=== PATIENT | male | born 1955 | race Caucasian/White ===

== ENCOUNTER 2017-07-21 15:30 | Observation (INO) ==
--- NOTE | 2017-07-21 15:57 | Emergency Department Note ---
Disposition Clinical Impression: Atrial fibrillation with RVR, History of coronary artery disease, History of COPD, History of diabetes mellitus, History of NE (myocardial infarction), Cardiac defibrillator in situ, Pacemaker, History of CHF (congestive heart failure), Dyspnea on exertion, Obesity, History of hyperlipidemia, History of hypertension, Abnormal EKG Disposition: Admitted As Inpatient Referrals: Santana Casas MD [Primary Care Provider] - Forms: ED Satisfaction Letter General Adult HPI - General Chief complaint: ED Chest Pain Stated complaint: A-fib RVR Time Seen by Provider: 07/21/17 15:42 Source: patient Limitations: no limitations - History of Present Illness HPI Narrative: 61-year-old male reports emergency department complaining of dyspnea on exertion , he states he took his breathing medications and then his heart started racing. He has had difficulty since last evening. The patient was at the outpatient facility getting his defibrillator checked, they noticed he had a high heart rate, so he came to the ED. There is no history of chest pain, coughing up blood, or abdominal pain. No vomiting or diarrhea. No history of acute back pain syncope coughing up blood leg swelling or pain or any trouble walking talking hearing seeing or speaking. No unilateral arm or leg weakness or numbness no facial drooping or slurred speech reported. There is no history of bleeding. The patient takes antiplatelet agents but is not known to be anticoagulated otherwise. He is diabetic. The patient describes COPD without oxygen requirement. He states he was prescribed breathing medication help him when he gets short of breath on exertion. There is no history of fall or injury. The patient has been symptomatic since yesterday. He states he has had cardiac stents in the past. Pain Scale: 0 - Related Data Home Medications Medication Instructions Recorded Confirmed Albuterol Sulfate [Proair Hfa] 1 puff IH Q4H PRN 05/13/16 09/06/16 Aspirin [Lo-Dose Aspirin EC] 81 mg PO DAILY 05/13/16 09/06/16 Atorvastatin [Lipitor] 40 mg PO HS 05/13/16 09/06/16 Budesonide/Formoterol 160/4.5 1 puff IH BIDR 05/13/16 09/06/16 [Symbicort 160/4.5] Furosemide [Lasix] 20 mg PO DAILY 05/13/16 09/06/16 Glimepiride [Amaryl] 2 mg PO DAILY 05/13/16 09/06/16 Hydralazine HCl 25 mg PO TID 05/13/16 09/06/16 Lisinopril [Zestril] 20 mg PO DAILY 05/13/16 09/06/16 Metoprolol XL (24 HR) Succ [Toprol 50 mg PO DAILY 05/13/16 09/06/16 Xl] Nitroglycerin [Nitrostat] 0.4 mg SL DAILY PRN 05/13/16 09/06/16 OxyCODONE/APAP 5/325 [Percocet 1 each PO Q6HR PRN 05/13/16 09/06/16 5/325 MG] Potassium Chloride [K-Tab ER] 10 meq PO TID 05/13/16 09/06/16 Sertraline [Zoloft] 200 mg PO DAILY 05/13/16 09/06/16 Allergies Allergy/AdvReac Type Severity Reaction Status Date / Time amiodarone AdvReac Difficulty Verified 10/03/15 09:41 Breathing tamsulosin [From Flomax] AdvReac Difficulty Verified 05/13/16 11:55 Breathing All systems ED: reviewed and negative except as stated. Past Medical History - Past Medical History Medical history: Reports: asthma, atrial fibrillation, CHF, COPD, coronary artery disease, diabetes, glaucoma, hyperlipidemia, hypertension, myocardial infarction, other Surgical history: Reports: angioplasty/stent, pacemaker/AICD, other Psychiatric history: Reports: depression - Social History Smoking Status: Never smoker Alcohol use: Reports: none Drug use: Reports: none Physical Exam - General Limitations: no limitations General appearance: alert, in no apparent distress - Head Head exam: atraumatic, normocephalic, normal inspection - Eye Eye exam: Present: normal appearance, PERRL, EOMI - ENT ENT exam: normal exam, normal oropharynx, mucous membranes moist - Neck Neck exam: Present: normal inspection, full ROM, trachea midline - Chest Chest inspection: Present: symmetric chest wall rise. Absent: tenderness - Respiratory Respiratory exam: Present: normal lung sounds bilaterally. Absent: respiratory distress, wheezes, accessory muscle use, prolonged expiratory phase - Cardiovascular Cardiovascular exam: Present: tachycardia, irregular rhythm - Abdominal Exam Abdominal exam: Present: soft, Non-Tender, normal bowel sounds. Absent: tenderness, distention, guarding, rebound, rigidity, pulsatile mass - Extremities Exam Extremities exam: Present: normal inspection, full ROM. Absent: tenderness, normal capillary refill, pedal edema, joint swelling, calf tenderness - Expanded Lower Extremity Exam Lower leg exam: Absent: Homans' sign Neurovascular/Tendon exam: Present: normal capillary refill. Absent: motor deficit, sensory deficit, tendon deficit, extremity cold to touch, pallor - Back Exam Back exam: Present: normal inspection, full ROM. Absent: tenderness, CVA tenderness (R), CVA tenderness (L), vertebral tenderness - Neurological Exam Neurological exam: Present: alert, oriented X3, CN II-XII intact. Absent: motor sensory deficit - Psychiatric Psychiatric exam: Present: normal affect, normal mood - Skin Skin exam: Present: warm, dry, intact, normal color. Absent: rash, cyanosis, diaphoresis, erythema, pallor, mottled Course Vital Signs Temperature 98.1 F 07/21/17 15:35 Pulse Rate 170 07/21/17 15:35 Respiratory Rate 16 07/21/17 15:35 Blood Pressure 119/86 07/21/17 15:35 O2 Sat by Pulse Oximetry 95 07/21/17 15:35 Temperature 98.1 F 07/21/17 15:35 Pulse Rate 77 07/21/17 16:46 Respiratory Rate 16 07/21/17 16:46 Blood Pressure 112/94 07/21/17 16:46 O2 Sat by Pulse Oximetry 97 07/21/17 16:46 Oxygen Delivery Oxygen Delivery Nasal Cannula Medical Decision Making - [facility] Narrative Medical decision making narrative: The patient appears to be stable, he was given insulin and aspirin the ED. The patient did not complain of chest pain. He has marked vascular risk factors, the patient's heart rate was reportedly in the 170s, and EKG demonstrated A. fib RVR with a heart rate of 144, he seemed to spontaneously convert into a sinus-type rhythm with pacemaker active. The patient has several PVCs but no evidence of acute ST elevations, inferior lead changes are noted which are consistent with previous. The patient had a recent stress test which also demonstrate what appear to be a fixed inferior defect. The previous stress test , current EKG, and previous EKG are consistent. The patient is not describing chest pain. The patient's glucose is notably elevated at 444. Based on the patient's age, history of CAD, CHF, COPD, uncontrolled diabetes, hyperlipidemia , hypertension, acute tachycardia, A. fib RVR, pacemaker in situ, I thought it would be best to observe the patient the hospital. I discussed the case with the hospitalist on-call who has accepted the patient to their care. The patient is agreeable to stay. His feels the patient's his stay as well. He reports he had had episodes where his defibrillator went off up to 59 times in 2 hours but has not had a the defibrillator event today. The hospitalist asked me to consult cardiology prior to admitting. I spoke with Dr. Velázquez who will act as storage management consultant. The patient is currently resting comfortably, chest pain-free. - Lab Data Lab results reviewed: Yes I reviewed the patient's lab results. Result diagrams: 07/21/17 16:02 07/21/17 16:02 Lab Results 07/21/17 07/21/17 07/21/17 Range/Units 16:02 16:02 16:02 WBC 9.2 (4.3-11.1) K/mcL RBC 5.21 (4.19-5.50) M/mcL Hgb 16.0 (12.9-16.9) g/dL Hct 46.9 (37.5-50.1) % MCV 90.0 (83.0-100.0) fL MCH 30.7 (28.0-33.3) pg MCHC 34.1 (31.6-35.5) g/dL RDW 13.0 (11.5-14.5) % Plt Count 189 (140-400) K/mcL MPV 10.2 (9.4-12.4) fL Immature Gran % 0.7 (0-4) % Seg Neutrophils % 80.1 % Lymphocytes % 10.6 % Monocytes % 7.8 % Eosinophils % 0.5 % Basophils % 0.3 % Neutrophils # 7.4 (1.6-8.9) K/mcL Lymphocytes # 1.0 (0.6-4.6) K/mcL Monocytes # 0.7 (0.0-1.3) K/mcL Eosinophils # 0.1 (0.0-0.6) K/mcL Basophils # 0.0 (0.0-0.2) K/mcL PT 11.0 (9.4-12.1) Seconds INR 1.0 APTT 25.0 L (26.0-36.0) Seconds Sodium (136-145) mEq/L Potassium (3.5-4.5) mEq/L Chloride (98-109) mEq/L Carbon Dioxide (19-29) mEq/L BUN (8-26) mg/dL Creatinine (0.72-1.25) mg/dL Est GFR ( Amer) (> 60) Est GFR (Non-Af Amer) (> 60) BUN/Creatinine Ratio (6-26) Glucose (70-99) mg/dL Calculated Osmolality (280-300) Calcium (8.6-10.8) mg/dL Total Bilirubin 0.7 (0.2-1.2) mg/dL Direct Bilirubin 0.3 (0.0-0.5) mg/dL Indirect Bilirubin 0.4 (0.0-1.2) mg/dL AST 22 (5-34) Units/L ALT 36 (0-55) Units/L Alkaline Phosphatase 63 (38-126) Units/L Troponin I (0-0.03) ng/mL B-Natriuretic Peptide (0-100) pg/mL Serum Total Protein 7.5 (6.0-8.3) g/dL Albumin 3.8 (3.5-5.0) g/dL Globulin 3.7 H (2.4-3.5) g/dL Albumin/Globulin Ratio 1.0 L (1.1-2.2) Lipase 29 (8-78) Units/L 07/21/17 07/21/17 07/21/17 Range/Units 16:02 16:02 16:06 WBC (4.3-11.1) K/mcL RBC (4.19-5.50) M/mcL Hgb (12.9-16.9) g/dL Hct (37.5-50.1) % MCV (83.0-100.0) fL MCH (28.0-33.3) pg MCHC (31.6-35.5) g/dL RDW (11.5-14.5) % Plt Count (140-400) K/mcL MPV (9.4-12.4) fL Immature Gran % (0-4) % Seg Neutrophils % % Lymphocytes % % Monocytes % % Eosinophils % % Basophils % % Neutrophils # (1.6-8.9) K/mcL Lymphocytes # (0.6-4.6) K/mcL Monocytes # (0.0-1.3) K/mcL Eosinophils # (0.0-0.6) K/mcL Basophils # (0.0-0.2) K/mcL PT (9.4-12.1) Seconds INR APTT (26.0-36.0) Seconds Sodium 137 (136-145) mEq/L Potassium 3.6 (3.5-4.5) mEq/L Chloride 101 (98-109) mEq/L Carbon Dioxide 24 (19-29) mEq/L BUN 18 (8-26) mg/dL Creatinine 1.37 H (0.72-1.25) mg/dL Est GFR ( Amer) > 60 (> 60) Est GFR (Non-Af Amer) 52 L (> 60) BUN/Creatinine Ratio 13 (6-26) Glucose 444 H (70-99) mg/dL Calculated Osmolality 305 H (280-300) Calcium 9.5 (8.6-10.8) mg/dL Total Bilirubin (0.2-1.2) mg/dL Direct Bilirubin (0.0-0.5) mg/dL Indirect Bilirubin (0.0-1.2) mg/dL AST (5-34) Units/L ALT (0-55) Units/L Alkaline Phosphatase (38-126) Units/L Troponin I 0.02 (0-0.03) ng/mL B-Natriuretic Peptide 146 H (0-100) pg/mL Serum Total Protein (6.0-8.3) g/dL Albumin (3.5-5.0) g/dL Globulin (2.4-3.5) g/dL Albumin/Globulin Ratio (1.1-2.2) Lipase (8-78) Units/L - Radiology Data Radiology results reviewed: Yes I reviewed the patient's radiology results.
[2017-07-21] MEDS ORDERED: 0.9 % Sodium Chloride 1,000 ML ONE (16:01)
[2017-07-21] MEDS ORDERED: 0.9 % Sodium Chloride 1,000 ML IVC ONE (16:06)
[2017-07-21 16:07] LABS: Basophils % 0.3 %; Eosinophils # 0.1 K/mcL (0.0-0.6); Eosinophils % 0.5 %; Hematocrit 46.9 % (37.5-50.1); Immature Granulocytes % 0.7 % (0-4); Lymphocytes % 10.6 %; Mean Corpuscular HGB Conc 34.1 g/dL (31.6-35.5); Mean Corpuscular Hemoglobin 30.7 pg (28.0-33.3); Mean Platelet Volume 10.2 fL (9.4-12.4); Monocytes # 0.7 K/mcL (0.0-1.3); Monocytes % 7.8 %; Neutrophils # 7.4 K/mcL (1.6-8.9); Platelet Count 189 K/mcL (140-400); Red Blood Count 5.21 M/mcL (4.19-5.50); Segmented Neutrophils % 80.1 %
[2017-07-21 16:20] LABS: BUN/Creatinine Ratio 13 (6-26); Blood Urea Nitrogen 18 mg/dL (8-26); Calcium 9.5 mg/dL (8.6-10.8); Carbon Dioxide 24 mEq/L (19-29); Chloride 101 mEq/L (98-109); Glucose 444 mg/dL (70-99); Osmolality,Calculated 305 (280-300); Potassium 3.6 mEq/L (3.5-4.5); Sodium 137 mEq/L (136-145); eGFR For African Americans > 60 (> 60); eGFR For Non-African Americans 52 (> 60)
[2017-07-21 16:23] LABS: Albumin 3.8 g/dL (3.5-5.0); Bilirubin,Direct 0.3 mg/dL (0.0-0.5); Bilirubin,Indirect 0.4 mg/dL (0.0-1.2); Bilirubin,Total 0.7 mg/dL (0.2-1.2); Globulin 3.7 g/dL (2.4-3.5); Total Protein 7.5 g/dL (6.0-8.3)
[2017-07-21] MEDS ORDERED: Insulin Regular, Human 100 UNIT/ML SQ ONE (16:43)
[2017-07-21] MEDS ORDERED: Aspirin 325 MG TABLET PO ONE (17:21)
[2017-07-21] MEDS ORDERED: Dextrose Gel 15 GM PO PRN ×2 (21:26)
[2017-07-21] MEDS ORDERED: *HR* Dextrose 50 % in Water (Syg) 50 ML SYRINGE IVP PRN (21:26)
[2017-07-21] MEDS ORDERED: D5% in Water 1,000 ML IVC PRN (21:26)
[2017-07-21] MEDS ORDERED: Insulin LISPRO 300 UNITS/3 ML VIAL SQ SCH (21:30)
[2017-07-21] MEDS ORDERED: Naloxone 0.4 MG/ML INJ IVP PRN (21:41)
[2017-07-21] MEDS ORDERED: Acetaminophen 325 MG TABLET PO PRN (21:41)
[2017-07-21] MEDS ORDERED: Levalbuterol Neb 1.25 MG/3 ML IH PRN (21:41)
[2017-07-21] MEDS ORDERED: *HR* OxyCODONE/APAP 5/325 TABLET PO PRN (21:45)
[2017-07-21] MEDS ORDERED: Nitroglycerin 0.4 MG TAB.SUBL SL PRN (21:45)
[2017-07-21 21:58] LABS: C-Reactive Protein 15 mg/L (Less than 5)
--- NOTE | 2017-07-21 22:31 | Internal Med History&Physical ---
Date of Encounter: 07/21/17 Time of Encounter: 20:00 Assessment and Plan (1) Atrial fibrillation with RVR Current visit: Yes Status: Acute 1. Resolved. 2. Currently in NSR on auscultation; obtaining EKG to confirm. 3. Will trend troponins and EKG's. 4. Check TSH. 5. Likely induced by albuterol nebs. Avoid Albuterol nebs, will use Xopenex aerosols instead if necessary. 6. Monitor on telemetry. (2) COPD (chronic obstructive pulmonary disease) Current visit: Yes Status: Chronic 1. No acute process. 2. Continue home meds as prescribed. 3. Avoid Albuterol NEBS; Xopenex as above. Qualifiers: COPD type: unspecified COPD Qualified Code(s): J44.9 - Chronic obstructive pulmonary disease, unspecified (3) Type 2 diabetes mellitus Current visit: Yes Status: Chronic 1. Avoid oral meds while in hospital. 2. Will use SSI and adjust dose as needed. Qualifiers: Diabetes mellitus complication status: without complication Diabetes mellitus chcf insulin use: without chcf use Qualified Code(s): E11.9 - Type 2 diabetes mellitus without complications (4) History of coronary artery disease Current visit: Yes Status: Chronic 1. Will trend troponins and EKG's. 2. No chest pain per patient. 3. If develops symptoms and/or troponin positive, will consult cardiology. (5) DVT prophylaxis Current visit: Yes Status: Acute 1. Heparin SQ. Internal Medicine - H&P: HPI Chief complaint: palpitations Admitted From: Emergency Dept Plans for Post Hospital Care: Home History of present illness: Mr. Castañeda is a 61 year old male who presents to the ER with palpitations and racing heartbeats. He was having his pacemaker interrogated today and they noted a heart rate of 144. He was seen in ER and admitted to hospitalist service. In the ER, he was noted to flip back in to a sinus rhythm from atrial fibrillation with rapid ventricular response. Upon my assessment of the patient, he is symptom-free and resting in bed comfortably. He denies any chest pain, shortness of breath, nausea, vomiting, or diarrhea. He has been having some wheezing and nonproductive cough lately from his COPD. His PCP started him on albuterol nebulized treatments recently and he had a few doses today. He noticed after his second albuterol nebulizer treatment that he became quite jittery and had palpitations. He's never had nebulized treatments before. He does use scheduled inhalers at home as prescribed. Presently, on auscultation on exam, he appears be in sinus rhythm. I am trying to obtain EKG to confirm. Past Med Surg Social Fam HX - Past Medical History Attestation: Yes The following information was validated with the patient. Source: patient, old records reviewed Medical history: asthma, atrial fibrillation, CHF, COPD, coronary artery disease , diabetes, glaucoma, hyperlipidemia, hypertension, myocardial infarction Psychiatric history: depression - Past Surgical History Surgical History: angioplasty/stent, pacemaker/AICD, other - Social History Smoking Status: Never smoker Alcohol use: none Drug use: none - Family History Mother Age: 78 Living Status: Hx Family Cardiac Disorders: Yes Hx Family Neuromuscular Disorders: Yes (Jessicaensons) Father Living Status: Age at : 58 Hx Family Cardiac Disorders: Yes Hx Family Cancer: Yes (brain cancer) Internal Medicine - H&P: Meds Albuterol Sulfate [Proair Hfa] 2 puff IH Q4H PRN 05/13/16 [History] Aspirin [Lo-Dose Aspirin EC] 81 mg PO DAILY 05/13/16 [History] Atorvastatin [Lipitor] 40 mg PO HS 05/13/16 [History] Budesonide/Formoterol 160/4.5 [Symbicort 160/4.5] 2 puff IH BIDR 05/13/16 [ History] Furosemide [Lasix] 20 mg PO BID 05/13/16 [History] Glimepiride [Amaryl] 2 mg PO DAILY 05/13/16 [History] Hydralazine HCl 25 mg PO TID 05/13/16 [History] Lisinopril [Zestril] 20 mg PO DAILY 05/13/16 [History] Metoprolol XL (24 HR) Succ [Toprol Xl] 50 mg PO DAILY 05/13/16 [History] Nitroglycerin [Nitrostat] 0.4 mg SL Q5M PRN 05/13/16 [History] OxyCODONE/APAP 5/325 [Percocet 5/325 MG] 1 each PO TID PRN 05/13/16 [History] Potassium Chloride [K-Tab ER] 30 meq PO DAILY 05/13/16 [History] Sertraline [Zoloft] 200 mg PO DAILY 05/13/16 [History] Cholecalciferol (D-3) [Vitamin D] 1,000 unit PO DAILY 07/21/17 [History] Tiotropium [place] [Spiriva Respimat] 2 puff IH DAILY 07/21/17 [History] metFORMIN [Glucophage] 500 mg PO BIDWM 07/21/17 [History] 3 Allergy/AdvReac Type Severity Reaction Status Date / Time amiodarone AdvReac Difficulty Verified 10/03/15 09:41 Breathing tamsulosin [From Flomax] AdvReac Difficulty Verified 05/13/16 11:55 Breathing - Constitutional Constitutional: no chills, no fever(s), no night sweats - EENT Eyes: no blurry vision, no change in vision Ears: no ear pain, no tinnitus Nose, mouth and throat: no nasal congestion, no nasal discharge, no sinus pressure, no sore throat - Cardiovascular Cardiovascular ROS IM: irregular heart rhythm, palpitations, no chest pain, no dyspnea, no dyspnea on exertion, no lightheadedness, no syncope - Respiratory Respiratory: wheezing, no cough, no dyspnea, no hemoptysis, no dyspnea on exertion, no chest congestion, no excessive phlegm production - Gastrointestinal Gastrointestinal: no abdominal pain, no diarrhea, no hematemesis, no hematochezia, no melena, no nausea, no vomiting - Genitourinary Genitourinary ROS male: no dysuria, no hematuria, no nocturia - Musculoskeletal Musculoskeletal ROS IM: no arthralgias, no back pain - Integumentary Integumentary IM: no rash, no jaundice - Neurological Neurological ROS: no dizziness, no focal weakness, no frequent falls, no headache(s) - Psychiatric Psychiatric: no anxiety, no depression - Endocrine Endocrine IM: no cold intolerance, no heat intolerance, no polydipsia, no polyuria - Allergic/Immunologic Allergic/Immunologic: wheezing, no GI upset with certain foods - Constitutional Vitals: Temp Pulse Resp BP Pulse Ox 98.4 F 91 20 137/119 96 07/21/17 20:00 07/21/17 20:00 07/21/17 20:00 07/21/17 20:00 07/21/17 20:00 General appearance: Present: cooperative, A&O X 3, pleasant, no acute distress - Head Head exam: Present: normal inspection - Eye Eye exam: Present: EOMI, normal appearance, PERRL. Absent: scleral icterus Pupils: Present: normal accommodation - ENT ENT exam: Present: mucous membranes dry, normal exam - Neck Neck exam general surgery: Present: full ROM, supple. Absent: lymphadenopathy, tenderness - Expanded Neck Exam Neck exam: Absent: carotid bruit - Respiratory Respiratory exam: Present: CTAB. Absent: chest wall tenderness, rales, respiratory distress, rhonchi, wheezes - Cardiovascular Cardiovascular exam: Present: RRR, +S1, +S2. Absent: diastolic murmur, systolic murmur Additional comments: palpable pacer in left upper chest - GI/Abdominal GI/Abdominal exam: Present: normal bowel sounds, soft. Absent: hepatomegaly, splenomegaly, tenderness - Extremities Exam Extremities exam: Present: warm, radial pulses palpable and symmetrical. Absent : calf tenderness, joint swelling, pedal edema, tenderness - Back Exam Back exam: Absent: CVA tenderness (L), CVA tenderness (R) - Neurological Exam Neurological exam: Present: alert, CN II-XII intact, oriented X3, no focal deficits, strengths equal and symetr throughout - Psychiatric Psychiatric exam: Present: normal affect, normal mood - Skin Skin exam: Present: dry, warm. Absent: rash Internal Med - H&P Results - Labs CBC & Chem 7: 07/21/17 16:02 07/21/17 16:02 - EKG Data -: EKG Interpreted by Myself - EKG Data Prior EKG available for review: no EKG comments: 07/21/17 22:46 Atrial Fibrillation w RVR -- ER EKG; awaiting second EKG - Diagnostic Studies Chest x-ray Status: image reviewed by me (negative)
[2017-07-21] MEDS: Budesonide/Formoterol 160/4.5 MDI IH SCH (22:40)
[2017-07-21] MEDS: *HR* Heparin 5,000 UNIT/ML VIAL SQ SCH (23:33)
[2017-07-21] MEDS ORDERED: dilTIAZem HCl 100 MG in D5% in Water 50 ML IVC SCH (23:45)
[2017-07-22 04:28] LABS: Alanine Aminotransferase 29 Units/L (0-55); Albumin 3.2 g/dL (3.5-5.0); Alkaline Phosphatase 50 Units/L (38-126); Aspartate Amino Transferase 18 Units/L (5-34); BUN/Creatinine Ratio 16 (6-26); Bilirubin,Total 0.7 mg/dL (0.2-1.2); Blood Urea Nitrogen 19 mg/dL (8-26); Calcium 8.8 mg/dL (8.6-10.8); Carbon Dioxide 25 mEq/L (19-29); Chloride 105 mEq/L (98-109); Chol/HDL Ratio 3.3 (0-4.9); Cholesterol 103 mg/dL (< 200); Globulin 3.3 g/dL (2.4-3.5); Glucose 239 mg/dL (70-99); HDL Cholesterol 31 mg/dL (40-59); LDL Cholesterol,Calculated 39 mg/dL (0-99); Magnesium 1.6 mg/dL (1.6-2.6); Osmolality,Calculated 298 (280-300); Potassium 3.8 mEq/L (3.5-4.5); Sodium 139 mEq/L (136-145); Total Protein 6.5 g/dL (6.0-8.3); Triglycerides 164 mg/dL (< 150); eGFR For African Americans > 60 (> 60); eGFR For Non-African Americans > 60 (> 60)
[2017-07-22] MEDS: *HR* Heparin 5,000 UNIT/ML VIAL SQ SCH (05:37)
[2017-07-22] MEDS ORDERED: Insulin LISPRO 300 UNITS/3 ML VIAL SQ SCH (07:30)
[2017-07-22] MEDS: Budesonide/Formoterol 160/4.5 MDI IH SCH (08:03)
[2017-07-22] MEDS ORDERED: Metoprolol XL (24 HR) Succ 50 MG TAB.ER.24H PO SCH (09:00)
[2017-07-22] MEDS ORDERED: hydrALAZINE 25 MG TABLET PO SCH (09:00)
[2017-07-22] MEDS ORDERED: Aspirin Enteric Coated 81 MG Tablet PO SCH (09:00)
[2017-07-22] MEDS ORDERED: Cholecalciferol (D-3) 1,000 UNIT TABLET PO SCH (09:00)
[2017-07-22] MEDS ORDERED: Tiotropium 18 MCG inhalation IH SCH (09:00)
--- NOTE | 2017-07-22 11:24 | Discharge Summary ---
Date of Encounter: 07/22/17 Time of Encounter: 11:23 - Discharge Diagnosis (1) Atrial fibrillation with RVR Priority: Primary Status: Acute (2) History of coronary artery disease Priority: Secondary Status: Chronic (3) Cardiac defibrillator in situ Priority: Secondary Status: Chronic (4) History of CHF (congestive heart failure) Priority: Secondary Status: Chronic (5) Obesity Priority: Secondary Status: Chronic Qualifiers: Obesity classification: adult class 2 (BMI 35 - 39.9) Body mass index: BMI 36.0-36.9 Qualified Code(s): E66.9 - Obesity, unspecified; Z68.36 - Body mass index (BMI) 36.0-36.9, adult; Z68.36 - Body mass index (BMI) 36.0-36.9, adult (6) COPD (chronic obstructive pulmonary disease) Priority: Secondary Status: Chronic Qualifiers: COPD type: unspecified COPD Qualified Code(s): J44.9 - Chronic obstructive pulmonary disease, unspecified (7) DVT prophylaxis Priority: Secondary Status: Acute (8) Type 2 diabetes mellitus Priority: Secondary Status: Chronic Qualifiers: Diabetes mellitus complication status: without complication Diabetes mellitus snf insulin use: without moth exterminator use Qualified Code(s): E11.9 - Type 2 diabetes mellitus without complications - Discharge Medications Prescriptions: Levalbuterol Neb [Xopenex Neb] 1.25 mg IH [id number] PRN #2 vial.neb PRN Reason: Wheezing Apixaban [Eliquis] 5 mg PO BID #60 tablet Metoprolol XL (24 HR) Succ [Toprol Xl] 75 mg PO DAILY #30 tab.er.24h Home Medications: Aspirin [Lo-Dose Aspirin EC] 81 mg PO DAILY 05/13/16 [History] Atorvastatin [Lipitor] 40 mg PO HS 05/13/16 [History] Budesonide/Formoterol 160/4.5 [Symbicort 160/4.5] 2 puff IH BIDR 05/13/16 [ History] Furosemide [Lasix] 20 mg PO BID 05/13/16 [History] Glimepiride [Amaryl] 2 mg PO DAILY 05/13/16 [History] Hydralazine HCl 25 mg PO TID 05/13/16 [History] Lisinopril [Zestril] 20 mg PO DAILY 05/13/16 [History] Nitroglycerin [Nitrostat] 0.4 mg SL Q5M PRN 05/13/16 [History] OxyCODONE/APAP 5/325 [Percocet 5/325 MG] 1 each PO TID PRN 05/13/16 [History] Potassium Chloride [K-Tab ER] 30 meq PO DAILY 05/13/16 [History] Sertraline [Zoloft] 200 mg PO DAILY 05/13/16 [History] Cholecalciferol (D-3) [Vitamin D] 1,000 unit PO DAILY 07/21/17 [History] Tiotropium [place] [Spiriva Respimat] 2 puff IH DAILY 07/21/17 [History] metFORMIN [Glucophage] 500 mg PO BIDWM 07/21/17 [History] Apixaban [Eliquis] 5 mg PO BID #60 tablet 07/22/17 [Rx] Levalbuterol Neb [Xopenex Neb] 1.25 mg IH [id number] PRN #2 vial.neb 07/22/17 [Rx] Metoprolol XL (24 HR) Succ [Toprol Xl] 75 mg PO DAILY #30 tab.er.24h 07/22/17 [ Rx] Allergies/Adverse Reactions: 3 Allergy/AdvReac Type Severity Reaction Status Date / Time amiodarone AdvReac Difficulty Verified 10/03/15 09:41 Breathing tamsulosin [From Flomax] AdvReac Difficulty Verified 05/13/16 11:55 Breathing Procedures/tests Complete & Pending: Procedures Performed prior 72 hours Category Date Time Status ECG 12 lead ECG [ECG] AM 0600 Y 07/22/17 06:00 Completed ECG 12 lead ECG [ECG] Routine Y 07/22/17 00:06 Completed EKG [ECG 12 lead ECG] [ECG] Routine Y 07/21/17 21:28 Ordered Date of admission: 07/21/17 17:41 Primary care physician: Santana Casas MD Consults: cardiolog Discharging clinician: Stormy Serrato Anticipated date of discharge: 07/22/17 - Patient Status Disposition: Home, Self-Care Condition: Good Functional capacity at discharge: independent ambulation Overall status at discharge: patient is back to baseline - Discharge Instructions Follow Up With: Santana Casas MD [Primary Care Provider] - Additional Instructions: Please follow up with your primary care physician and cardiology within one week after your discharge from the hospital. Your home dose of Metoprolol has been increased to 75mg once a day Eliquis 5mg twice a day has been added to your home medications Albuterol INH has been discontinued and Xopenex INH as needed for shortness of breath has been added. Resume all other home medications as prescribed by your primary care physician. - Diet and Activity Activity: increase activity as tolerated Diet: diabetic diet, low fat, low cholesterol, low salt diet Hospital course: Mr. Castañeda is a 61 year old male with past medical history of ischemic cardiomyopathy, status post ICD, PAD, COPD, CHF who presented to the ER for elevated heart rate and was found to have atrial fibrillation with RVR. He reports of having palpitations after using his albuterol inhaler was newly prescribed. In the ER he received 1 dose of IV Cardizem bolus which converted him to normal sinus rhythm. He reports history of atrial fibrillation in the past requiring ablation. He was followed by cardiology and his home dose of metoprolol was increased to 75 mg daily. He was also started on Eliquis for oral anticoagulation. He is able to tolerate the increase in metoprolol dose. Denies any discomfort at this time and is hemodynamically stable. He will be discharged home with follow-up with primary care physician and cardiology. Patient demonstrates understanding of his diagnosis and agrees with the discharge care and plan. Albuterol inhaler has been discontinued and Xopenex has been prescribed. - Time Spent with Patient Total time spent providing and/or coordinating discharge services: Greater than 30 minutes - Constitutional Vitals: Temp Pulse Resp BP Pulse Ox 97.9 F 77 16 127/94 96 07/22/17 07:33 07/22/17 07:33 07/22/17 08:03 07/22/17 07:33 07/22/17 08:03 General appearance: Present: cooperative, A&O X 3, pleasant, no acute distress - Head Head exam: Present: atraumatic, normocephalic - Eye Eye exam: Present: conjuntiva pink, sclera anicteric - Respiratory Respiratory exam: Present: CTAB. Absent: respiratory distress, wheezes - Cardiovascular Cardiovascular exam: Present: RRR, +S1, +S2. Absent: diastolic murmur, gallop, rubs, systolic murmur - GI/Abdominal GI/Abdominal exam: Present: normal bowel sounds, soft, no peritoneal signs. Absent: distended, tenderness - Extremities Exam Extremities exam: Present: warm, radial pulses palpable and symmetrical. Absent : calf tenderness, pedal edema - Neurological Exam Neurological exam: Present: alert, oriented X3 - Psychiatric Psychiatric exam: Present: normal affect, normal mood
--- NOTE | 2017-07-22 11:27 | Cardiology Consult Note ---
Addendum entered and electronically signed by Luís Perez CNP 07/22/17 11:46 : Eliquis RX sent to [facility]. Original Note: <Luís Perez - Last Filed: 07/22/17 11:19> Date of Encounter: 07/22/17 Time of Encounter: 11:00 Assessment and Plan (1) Atrial fibrillation with RVR Current Visit: Yes Status: Acute Presented with atrial fibrillation with RVR. Does not have previous history. Resolved with IV cardizem bolus. Symptoms recent after starting albuterol. Changed to xopenex by primary team. Now NSR. TTE 10/2016- EF 40-45%. No significant valvular disease. TSH normal. Troponin negative x3. Anticoagulation discussed with patient and . Coumadin vs NOAC discussed. He is agreeable to eliquis. I will send for nichols check. Increase toprol xl to 75 mg daily. (2) History of coronary artery disease Current Visit: Yes Status: Chronic H/o CAD s/p previous PCI. Stress test in April of this year was negative for ischemia. (3) Cardiac defibrillator in situ Current Visit: Yes Status: Acute Recent lead change at [facility] due to lead fracture and inappropriate shocks. (4) History of CHF (congestive heart failure) Current Visit: Yes Status: Acute Mild ICMP. EF 40-45%. Currently euvolemic. Continue bb and chuckie-inhibitor.Low sodium diet. BNP 146. CXR with no acute disease. Discussion w patient/family: The assessment and plan as outlined above was discussed with the patient and/or family members who expressed understanding and agreement. All questions were answered. Thank you for involving us in the care of your patient. Please call with any questions. History of Present Illness Consult date: 07/22/17 Requesting physician: Matt Ty Consult reason: Afib with RVR Chief complaint: Palpitations after breathing treatment History of present illness: Mr. Castañeda is a 61 year old male with a history of ischemic cardiomyoapthy, ICD, VT s/p previous VT ablation, and PAD who presented from the [facility] with HR in the 180-200 atrial fibrillation with RVR. He c/o palpitations after taking an albuterol inhaler. In the ED he converted to NSR after IV cardizem bolus. He reported h/o afib and ablation. Upon further review he has a history of VT and ablation for VT. He is not on AC. He denies chest pain. C/o intermittent SOB with activity. He was started on nebulizers for his SOB. Past Med Surg Social Fam HX - Past Medical History Medical history: asthma, atrial fibrillation, CHF, COPD, coronary artery disease , diabetes, glaucoma, hyperlipidemia, hypertension, myocardial infarction Psychiatric history: depression - Past Surgical History Surgical History: angioplasty/stent, pacemaker/AICD, other - Social History Smoking Status: Never smoker Alcohol use: none Drug use: none - Family History Mother Age: 78 Living Status: Hx Family Cardiac Disorders: Yes Hx Family Neuromuscular Disorders: Yes (Parkensons) Father Living Status: Age at : 58 Hx Family Cardiac Disorders: Yes Hx Family Cancer: Yes (brain cancer) Medications and Allergies Albuterol Sulfate [Proair Hfa] 2 puff IH Q4H PRN 05/13/16 [History] Aspirin [Lo-Dose Aspirin EC] 81 mg PO DAILY 05/13/16 [History] Atorvastatin [Lipitor] 40 mg PO HS 05/13/16 [History] Budesonide/Formoterol 160/4.5 [Symbicort 160/4.5] 2 puff IH BIDR 05/13/16 [ History] Furosemide [Lasix] 20 mg PO BID 05/13/16 [History] Glimepiride [Amaryl] 2 mg PO DAILY 05/13/16 [History] Hydralazine HCl 25 mg PO TID 05/13/16 [History] Lisinopril [Zestril] 20 mg PO DAILY 05/13/16 [History] Metoprolol XL (24 HR) Succ [Toprol Xl] 50 mg PO DAILY 05/13/16 [History] Nitroglycerin [Nitrostat] 0.4 mg SL Q5M PRN 05/13/16 [History] OxyCODONE/APAP 5/325 [Percocet 5/325 MG] 1 each PO TID PRN 05/13/16 [History] Potassium Chloride [K-Tab ER] 30 meq PO DAILY 05/13/16 [History] Sertraline [Zoloft] 200 mg PO DAILY 05/13/16 [History] Cholecalciferol (D-3) [Vitamin D] 1,000 unit PO DAILY 12/04/17 [History] Tiotropium [place] [Spiriva Respimat] 2 puff IH DAILY 07/21/17 [History] metFORMIN [Glucophage] 500 mg PO BIDWM 07/21/17 [History] 3 Allergy/AdvReac Type Severity Reaction Status Date / Time amiodarone AdvReac Difficulty Verified 10/03/15 09:41 Breathing tamsulosin [From Flomax] AdvReac Difficulty Verified 05/13/16 11:55 Breathing All Systems Review: A 10-system review of systems was performed and is negative for pertinent findings except as documented above in the HPI. Physical Examination Vital Signs, Last 4 Hours Temp Pulse Resp BP Pulse Ox 07/22/17 08:03 16 96 07/22/17 07:33 97.9 F 77 12 127/94 96 General: Conversant, No Apparent Distress HEENT: Atraumatic, Normocephaly, Mucus Membranes Moist Neck: No JVD, Normal carotid pulses Cardiac: Reg Rate and Rhythm, Normal S1 and S2, No Murmur Lungs: Normal Breath Sounds, No Wheeze, Rales, Rhonchi Neuro: Alert and responsive, No focal deficits noted Abdomen: Soft, Non-Tender Skin: No rashes noted on visualized skin Musculoskeletal: No Chest Wall Tenderness Extremities: No Clubbing, No Cyanosis, No Edema, Normal Pulses Results 07/21/17 16:02 07/22/17 04:05 Lab Results 07/21/17 07/22/17 07/22/17 23:05 04:05 04:05 Sodium 139 Potassium 3.8 Chloride 105 Carbon Dioxide 25 BUN 19 Creatinine 1.16 Glucose 239 H Calcium 8.8 Magnesium 1.6 Total Bilirubin 0.7 AST 18 ALT 29 Alkaline Phosphatase 50 Troponin I 0.02 0.03 TSH 07/22/17 07/22/17 04:05 09:31 Sodium Potassium Chloride Carbon Dioxide BUN Creatinine Glucose Calcium Magnesium Total Bilirubin AST ALT Alkaline Phosphatase Troponin I 0.02 TSH 1.062 - Imaging and Cardiology Echo: report reviewed - EKG Interpretation EKG results cardiology: personally reviewed Consult Discharge Plan - Plan Additional Instructions: pcp requested Referrals: Santana Casas MD [Primary Care Provider] - <Elida Velázquez - Last Filed: 07/22/17 12:38> Date of Encounter: 07/22/17 - Attending Attestation I have personally performed a face to face evaluation on this patient. I have reviewed and agree with the care plan. History and Exam by me shows: New onset Afib, recent negative ischemia work up. Agree with David for stroke risk reduction. F/U with Cardiology as an OP Assessment and Plan Discussion w patient/family: The assessment and plan as outlined above was discussed with the patient and/or family members who expressed understanding and agreement. All questions were answered. Thank you for involving us in the care of your patient. Please call with any questions. History of Present Illness History of present illness: Mr. Castañeda is a 61 year old male All Systems Review: A 10-system review of systems was performed and is negative for pertinent findings except as documented above in the HPI. Physical Examination Vital Signs, Last 4 Hours Temp Pulse Resp BP Pulse Ox 07/22/17 11:24 98.1 F 96 14 127/94 96 Results 07/21/17 16:02 07/22/17 04:05 Lab Results 07/21/17 07/22/17 07/22/17 23:05 04:05 04:05 Sodium 139 Potassium 3.8 Chloride 105 Carbon Dioxide 25 BUN 19 Creatinine 1.16 Glucose 239 H Calcium 8.8 Magnesium 1.6 Total Bilirubin 0.7 AST 18 ALT 29 Alkaline Phosphatase 50 Troponin I 0.02 0.03 TSH 07/22/17 07/22/17 04:05 09:31 Sodium Potassium Chloride Carbon Dioxide BUN Creatinine Glucose Calcium Magnesium Total Bilirubin AST ALT Alkaline Phosphatase Troponin I 0.02 TSH 1.062
[2017-07-22] MEDS ORDERED: Metoprolol XL (24 HR) Succ 25 MG TAB.ER.24H PO ONE (13:13)
[2017-07-22] MEDS ORDERED: *HR* OxyCODONE/APAP 5/325 TABLET PO PRN (14:41)
[2017-07-22] MEDS ORDERED: APIXABAN 5 MG TABLET PO SCH (15:00)
[2017-07-22 15:25] VITALS: BP 124/98
--- NOTE | 2017-07-23 06:49 | Electrocardiograph Report ---
[place] [id number] Test Date: 2017-07-22 Pat Name: Ernesto Castañeda Department: 111 Room: [id number] Gender: M Kinesiologist: : 1955 Requested By: Stormy Serrato Order Number: [id number] Reading MD: Laverne Leong Measurements Intervals [place] Rate: 76 P: 67 [place]: 228 QRS: 43 QRSD: 93 T: 0 QT: 375 QTc: 405 Interpretive Statements SINUS RHYTHM WITH FIRST DEGREE AV BLOCK NONSPECIFIC T-WAVE ABNORMALITY Electronically Signed On 07-23-2017 6:47:20 EST by Laverne Leong
[2017-07-23] MEDS ORDERED: Metoprolol XL (24 HR) Succ 50 MG TAB.ER.24H PO SCH (09:00)
== END 2017-07-22 16:36 | disposition home or self-care (01) ==
LOC: 2NENU 15:30 → EMEROO 15:30 → SUATTDRO 17:41 → 2NENU 18:02
PROVIDERS: ADMIT Internal Medicine; ATTEND Internal Medicine

== ENCOUNTER 2019-12-11 08:41 | Inpatient (IN) ==
[2019-12-11] MEDS ORDERED: 0.9 % Sodium Chloride 500 ML IVC ONE (09:13)
[2019-12-11 09:40] LABS: Basophils % 0.2 %; Eosinophils % 0.3 %; Hematocrit 47.1 % (37.5-50.1); Immature Granulocytes % 0.7 % (0-4); Lymphocytes # 0.7 K/mcL (0.6-4.6); Lymphocytes % 6.1 %; Mean Corpuscular Volume 94.2 fL (83.0-100.0); Mean Platelet Volume 10.8 fL (9.4-12.4); Monocytes # 0.7 K/mcL (0.0-1.3); Monocytes % 6.2 %; Neutrophils # 10.2 K/mcL (1.6-8.9); Platelet Count 141 K/mcL (140-400); Segmented Neutrophils % 86.5 %; White Blood Count 11.8 K/mcL (4.3-11.1)
[2019-12-11 09:50] LABS: INR 1.5; Prothrombin Time 17.2 Seconds (9.4-12.1)
[2019-12-11 09:53] LABS: Activated Partial Thrombo Time 30.4 Seconds (26.0-36.0)
[2019-12-11 10:05] LABS: BUN/Creatinine Ratio 24 (6-26); Blood Urea Nitrogen 27 mg/dL (8-23); Calcium 9.6 mg/dL (8.6-10.3); Carbon Dioxide 20 mEq/L (23-29); Chloride 105 mEq/L (98-107); Glucose 354 mg/dL (70-105); Osmolality,Calculated 297 (280-300); Potassium 4.3 mEq/L (3.5-5.1); Sodium 134 mEq/L (136-145); Troponin I 0.05 ng/mL (< 0.04); eGFR For African Americans > 60 (> 60); eGFR For Non-African Americans > 60 (> 60)
[2019-12-11] MEDS ORDERED: Isovue-370 500 ML BOTTLE IVP ONE (10:19)
[2019-12-11] MEDS ORDERED: Furosemide 40 MG/4 ML VIAL IVP ONE (10:20)
[2019-12-11 10:27] LABS: Magnesium 1.6 mg/dL (1.6-2.6)
[2019-12-11] MEDS ORDERED: DilTIAZem 50 MG in 0.9 % Sodium Chloride 40 ML IVC SCH (10:30)
[2019-12-11] MEDS ORDERED: Insulin Regular, Human 100 UNIT/ML SQ ONE (10:38)
[2019-12-11] MEDS ORDERED: Aspirin 81 MG TAB.CHEW PO STA (10:41)
[2019-12-11] MEDS ORDERED: *HR* Enoxaparin 120 MG/0.8 ML SYRINGE SQ STA (12:03)
[2019-12-11] MEDS ORDERED: Acetaminophen 325 MG TABLET PO PRN (14:26)
[2019-12-11] MEDS ORDERED: Naloxone 0.4 MG/ML INJ IVP PRN (14:26)
[2019-12-11] MEDS ORDERED: Ondansetron 4 MG/2 ML VIAL IVP PRN (14:26)
[2019-12-11] MEDS ORDERED: *HR* Heparin 5,000 UNIT/ML VIAL IVP ONE (14:30)
[2019-12-11] MEDS ORDERED: *HR* Heparin 5,000 UNIT/ML VIAL IVP PRN ×2 (14:30)
[2019-12-11] MEDS ORDERED: Heparin 25,000 UNIT/250 ML D5W 25,000 UNIT/250 ML IV.SOLN IVC SCH (14:30)
[2019-12-11] MEDS ORDERED: *HR* Dextrose 50 % in Water (Syg) 50 ML SYRINGE IVP PRN (14:34)
[2019-12-11] MEDS ORDERED: Dextrose Gel 15 GM/37.5 ML TUBE PO PRN ×2 (14:34)
[2019-12-11] MEDS ORDERED: D5% in Water 1,000 ML IVC PRN (14:34)
[2019-12-11] MEDS ORDERED: Insulin DETEMIR 100 UNIT/ML X5UNITS SQ ONE (14:35)
[2019-12-11] MEDS: Levalbuterol Neb 0.63 MG/3 ML IH SCH (15:43)
[2019-12-11] MEDS ORDERED: Levalbuterol 1 PUFF INHALER IH SCH (15:45)
[2019-12-11] MEDS: DilTIAZem 50 MG in 0.9 % Sodium Chloride 40 ML IVC SCH ×2 (16:29→20:58)
[2019-12-11 18:20] LABS: Hematocrit 48.4 % (37.5-50.1); Hemoglobin 16.2 g/dL (12.9-16.9); Immature Platelets 7.1 % (1.1-6.1); Mean Corpuscular HGB Conc 33.5 g/dL (31.6-35.5); Mean Corpuscular Volume 95.7 fL (83.0-100.0); Mean Platelet Volume 10.9 fL (9.4-12.4); Red Blood Count 5.06 M/mcL (4.19-5.50); Red Cell Distribution Width 13.9 % (11.5-14.5); White Blood Count 11.3 K/mcL (4.3-11.1)
[2019-12-11 18:28] LABS: Heparin anti-factor XA UFH 0.5 IU/mL (0.30-0.70); INR 1.4; Prothrombin Time 15.9 Seconds (9.4-12.1)
[2019-12-11 18:30] LABS: Activated Partial Thrombo Time 35.1 Seconds (26.0-36.0)
[2019-12-11] MEDS: Insulin LISPRO 300 UNITS/3 ML VIAL SQ SCH (20:59)
[2019-12-11] MEDS ORDERED: Melatonin 3 MG TABLET PO ONE (22:00)
[2019-12-11] MEDS: Levalbuterol 1 PUFF INHALER IH SCH (22:28)
[2019-12-12] MEDS: Heparin 25,000 UNIT/250 ML D5W 25,000 UNIT/250 ML IV.SOLN IVC SCH (01:30)
[2019-12-12] MEDS: Levalbuterol 1 PUFF INHALER IH SCH ×4 (04:12→22:48)
[2019-12-12] MEDS: DilTIAZem 50 MG in 0.9 % Sodium Chloride 40 ML IVC SCH (05:08)
[2019-12-12 05:44] LABS: Mean Corpuscular Volume 94.7 fL (83.0-100.0)
[2019-12-12 05:46] LABS: Basophils # 0.1 K/mcL (0.0-0.2); Basophils % 0.4 %; Eosinophils # 0.1 K/mcL (0.0-0.6); Hematocrit 46.5 % (37.5-50.1); Hemoglobin 15.7 g/dL (12.9-16.9); Immature Granulocytes % 0.4 % (0-4); Immature Platelets 5.7 % (1.1-6.1); Lymphocytes # 1.3 K/mcL (0.6-4.6); Lymphocytes % 11.5 %; Mean Corpuscular HGB Conc 33.8 g/dL (31.6-35.5); Mean Platelet Volume 10.6 fL (9.4-12.4); Monocytes # 0.9 K/mcL (0.0-1.3); Monocytes % 7.5 %; Platelet Count 139 K/mcL (140-400); Red Blood Count 4.91 M/mcL (4.19-5.50); Segmented Neutrophils % 79.2 %; White Blood Count 11.4 K/mcL (4.3-11.1)
[2019-12-12 06:05] LABS: BUN/Creatinine Ratio 22 (6-26); Blood Urea Nitrogen 26 mg/dL (8-23); Calcium 9.5 mg/dL (8.6-10.3); Carbon Dioxide 25 mEq/L (23-29); Chloride 102 mEq/L (98-107); Glucose 180 mg/dL (70-105); Magnesium 1.9 mg/dL (1.6-2.6); Osmolality,Calculated 293 (280-300); Potassium 3.7 mEq/L (3.5-5.1); Sodium 137 mEq/L (136-145); eGFR For African Americans > 60 (> 60); eGFR For Non-African Americans > 60 (> 60)
[2019-12-12 06:18] LABS: Thyroid Stimulating Hormone 1.884 mcIU/mL (0.340-5.600)
[2019-12-12 07:00] LABS: Estimated Average Glucose 203 mg/dl
[2019-12-12] MEDS ORDERED: Nitroglycerin 0.4 MG TAB.SUBL SL PRN (07:29)
[2019-12-12] MEDS ORDERED: *HR* OxyCODONE/APAP 5/325 TABLET PO PRN (07:29)
[2019-12-12] MEDS: Aspirin Enteric Coated 81 MG Tablet PO SCH (08:59)
[2019-12-12] MEDS: Isosorbide MONOnitrate (24 HR) 30 MG TAB.ER.24H PO SCH (08:59)
[2019-12-12] MEDS: Insulin DETEMIR 100 UNIT/ML X5UNITS SQ SCH (08:59)
[2019-12-12] MEDS: lisinopriL 20 MG TABLET PO SCH (09:00)
[2019-12-12] MEDS: DilTIAZem CD (24hr) 120 MG CAP.ER.24H PO SCH (09:00)
[2019-12-12] MEDS: Insulin LISPRO 300 UNITS/3 ML VIAL SQ SCH ×3 (09:01→17:51)
[2019-12-12] MEDS: Furosemide 40 MG/4 ML VIAL IVP SCH (09:01)
[2019-12-12] MEDS ORDERED: Warfarin perPT PO PRN (18:00)
[2019-12-12] MEDS ORDERED: *HR* Warfarin 7.5 MG TABLET PO ONE (18:00)
[2019-12-13] MEDS: Heparin 25,000 UNIT/250 ML D5W 25,000 UNIT/250 ML IV.SOLN IVC SCH ×2 (00:20→21:12)
[2019-12-13 03:04] LABS: Basophils % 0.3 %; Eosinophils # 0.2 K/mcL (0.0-0.6); Eosinophils % 1.7 %; Hematocrit 43.3 % (37.5-50.1); Hemoglobin 14.5 g/dL (12.9-16.9); INR 1.2; Immature Granulocytes % 0.9 % (0-4); Immature Platelets 5.7 % (1.1-6.1); Lymphocytes # 1.6 K/mcL (0.6-4.6); Lymphocytes % 17.2 %; Mean Corpuscular HGB Conc 33.5 g/dL (31.6-35.5); Mean Corpuscular Hemoglobin 31.7 pg (28.0-33.3); Mean Corpuscular Volume 94.7 fL (83.0-100.0); Mean Platelet Volume 10.3 fL (9.4-12.4); Monocytes # 0.8 K/mcL (0.0-1.3); Monocytes % 8.2 %; Platelet Count 123 K/mcL (140-400); Prothrombin Time 13.9 Seconds (9.4-12.1); Red Blood Count 4.57 M/mcL (4.19-5.50); Red Cell Distribution Width 13.7 % (11.5-14.5); Segmented Neutrophils % 71.7 %; White Blood Count 9.3 K/mcL (4.3-11.1)
[2019-12-13 03:18] LABS: BUN/Creatinine Ratio 26 (6-26); Blood Urea Nitrogen 32 mg/dL (8-23); Calcium 8.9 mg/dL (8.6-10.3); Carbon Dioxide 26 mEq/L (23-29); Chloride 103 mEq/L (98-107); Glucose 182 mg/dL (70-105); Magnesium 1.8 mg/dL (1.6-2.6); Osmolality,Calculated 294 (280-300); Potassium 3.8 mEq/L (3.5-5.1); Sodium 136 mEq/L (136-145); eGFR For African Americans > 60 (> 60); eGFR For Non-African Americans 59 (> 60)
[2019-12-13 03:24] LABS: Neutrophils # 6.7 K/mcL (1.6-8.9)
[2019-12-13 03:25] LABS: Platelet Estimate Normal (Normal)
[2019-12-13] MEDS: Levalbuterol 1 PUFF INHALER IH SCH (03:57)
[2019-12-13] MEDS ORDERED: Levalbuterol 1 PUFF INHALER IH PRN (07:24)
[2019-12-13] MEDS: Furosemide 40 MG/4 ML VIAL IVP SCH (08:59)
[2019-12-13] MEDS: Aspirin Enteric Coated 81 MG Tablet PO SCH (08:59)
[2019-12-13] MEDS: Isosorbide MONOnitrate (24 HR) 30 MG TAB.ER.24H PO SCH (08:59)
[2019-12-13] MEDS: lisinopriL 20 MG TABLET PO SCH (08:59)
[2019-12-13] MEDS: DilTIAZem CD (24hr) 120 MG CAP.ER.24H PO SCH (08:59)
[2019-12-13] MEDS: Insulin DETEMIR 100 UNIT/ML X5UNITS SQ SCH (09:01)
[2019-12-13] MEDS: Insulin LISPRO 300 UNITS/3 ML VIAL SQ SCH ×3 (09:01→17:12)
[2019-12-13] MEDS: Levalbuterol Neb 0.63 MG/3 ML IH SCH (11:02)
[2019-12-13] MEDS ORDERED: *HR* Warfarin 7.5 MG TABLET PO ONE (18:00)
[2019-12-14 02:15] LABS: INR 1.2; Prothrombin Time 13.7 Seconds (9.4-12.1)
[2019-12-14 02:21] LABS: Calcium 9.7 mg/dL (8.6-10.3); Potassium 4.1 mEq/L (3.5-5.1)
[2019-12-14] MEDS: Heparin 25,000 UNIT/250 ML D5W 25,000 UNIT/250 ML IV.SOLN IVC SCH ×2 (02:28→17:32)
[2019-12-14 02:29] LABS: Basophils % 0.4 %; Eosinophils # 0.2 K/mcL (0.0-0.6); Eosinophils % 1.8 %; Hematocrit 48.6 % (37.5-50.1); Immature Granulocytes % 0.8 % (0-4); Mean Corpuscular Hemoglobin 32.5 pg (28.0-33.3); Mean Corpuscular Volume 95.7 fL (83.0-100.0); Mean Platelet Volume 11.1 fL (9.4-12.4); Monocytes # 0.7 K/mcL (0.0-1.3); Monocytes % 7.4 %; Neutrophils # 6.9 K/mcL (1.6-8.9); Platelet Count 178 K/mcL (140-400); Red Blood Count 5.08 M/mcL (4.19-5.50); Red Cell Distribution Width 13.9 % (11.5-14.5); Segmented Neutrophils % 69.6 %
[2019-12-14 03:00] LABS: Hemoglobin 16.5 g/dL (12.9-16.9)
[2019-12-14] MEDS: lisinopriL 20 MG TABLET PO SCH (08:17)
[2019-12-14] MEDS: Isosorbide MONOnitrate (24 HR) 30 MG TAB.ER.24H PO SCH (08:17)
[2019-12-14] MEDS: Aspirin Enteric Coated 81 MG Tablet PO SCH (08:18)
[2019-12-14] MEDS: Insulin DETEMIR 100 UNIT/ML X5UNITS SQ SCH (08:19)
[2019-12-14] MEDS: Insulin LISPRO 300 UNITS/3 ML VIAL SQ SCH ×3 (08:42→17:40)
[2019-12-14] MEDS ORDERED: Furosemide 40 MG TABLET PO SCH (09:00)
[2019-12-14] MEDS ORDERED: *HR* Warfarin 10 MG TABLET PO ONE (18:00)
[2019-12-14] MEDS: Metoprolol XL (24 HR) Succ 50 MG TAB.ER.24H PO SCH (20:08)
[2019-12-15 02:49] LABS: Basophils # 0.1 K/mcL (0.0-0.2); Basophils % 0.5 %; Eosinophils # 0.1 K/mcL (0.0-0.6); Eosinophils % 1.3 %; Hematocrit 45.8 % (37.5-50.1); Hemoglobin 15.6 g/dL (12.9-16.9); Immature Granulocytes % 0.9 % (0-4); Lymphocytes # 1.8 K/mcL (0.6-4.6); Lymphocytes % 17.7 %; Mean Corpuscular HGB Conc 34.1 g/dL (31.6-35.5); Mean Corpuscular Hemoglobin 33.1 pg (28.0-33.3); Mean Platelet Volume 10.8 fL (9.4-12.4); Monocytes # 0.8 K/mcL (0.0-1.3); Monocytes % 8.1 %; Neutrophils # 7.1 K/mcL (1.6-8.9); Platelet Count 143 K/mcL (140-400); Red Blood Count 4.72 M/mcL (4.19-5.50); Red Cell Distribution Width 14.2 % (11.5-14.5); Segmented Neutrophils % 71.5 %; White Blood Count 9.9 K/mcL (4.3-11.1)
[2019-12-15 02:59] LABS: INR 1.4; Prothrombin Time 15.7 Seconds (9.4-12.1)
[2019-12-15 03:10] LABS: BUN/Creatinine Ratio 29 (6-26); Blood Urea Nitrogen 37 mg/dL (8-23); Calcium 9.6 mg/dL (8.6-10.3); Carbon Dioxide 22 mEq/L (23-29); Chloride 106 mEq/L (98-107); Glucose 171 mg/dL (70-105); Osmolality,Calculated 297 (280-300); Potassium 4.3 mEq/L (3.5-5.1); Sodium 137 mEq/L (136-145); eGFR For African Americans > 60 (> 60); eGFR For Non-African Americans 57 (> 60)
[2019-12-15 06:57] VITALS: BP 127/81
[2019-12-15] MEDS ORDERED: lisinopriL 5 MG TABLET PO SCH (09:00)
[2019-12-15] MEDS: Heparin 25,000 UNIT/250 ML D5W 25,000 UNIT/250 ML IV.SOLN IVC SCH ×2 (09:08)
[2019-12-15] MEDS: Isosorbide MONOnitrate (24 HR) 30 MG TAB.ER.24H PO SCH (09:09)
[2019-12-15] MEDS: Metoprolol XL (24 HR) Succ 50 MG TAB.ER.24H PO SCH (09:09)
[2019-12-15] MEDS: Insulin DETEMIR 100 UNIT/ML X5UNITS SQ SCH (09:09)
[2019-12-15] MEDS: Insulin LISPRO 300 UNITS/3 ML VIAL SQ SCH ×2 (09:09→12:40)
[2019-12-15] MEDS: Aspirin Enteric Coated 81 MG Tablet PO SCH (09:09)
[2019-12-15] MEDS ORDERED: *HR* Warfarin 7.5 MG TABLET PO ONE (18:00)
== END 2019-12-15 13:03 | disposition home or self-care (01) | DRG 280 ==
LOC: EMEROOARM 08:41 → 2ANU 08:41 → SUATTDRO 12:53 → 2ANU 14:10 → 2NENU 15:57 → 2ANU 12-14 00:37
PROVIDERS: ADMIT Pharmacist; ATTEND Pharmacist

== ENCOUNTER 2019-12-31 09:16 | Inpatient (IN) ==
[2019-12-31 10:19] LABS: Basophils % 0.5 %; Eosinophils # 0.1 K/mcL (0.0-0.6); Eosinophils % 0.9 %; Hematocrit 47.8 % (37.5-50.1); Hemoglobin 15.3 g/dL (12.9-16.9); Immature Granulocytes % 0.5 % (0-4); Lymphocytes # 0.8 K/mcL (0.6-4.6); Lymphocytes % 10.2 %; Mean Corpuscular Hemoglobin 31.7 pg (28.0-33.3); Mean Corpuscular Volume 99.2 fL (83.0-100.0); Mean Platelet Volume 10.3 fL (9.4-12.4); Monocytes # 0.6 K/mcL (0.0-1.3); Monocytes % 7.2 %; Neutrophils # 6.4 K/mcL (1.6-8.9); Platelet Count 145 K/mcL (140-400); Red Blood Count 4.82 M/mcL (4.19-5.50); Red Cell Distribution Width 14.5 % (11.5-14.5); Segmented Neutrophils % 80.7 %; White Blood Count 7.9 K/mcL (4.3-11.1)
[2019-12-31 10:22] LABS: Prothrombin Time 22.6 Seconds (9.4-12.1)
[2019-12-31 10:39] LABS: Activated Partial Thrombo Time 33.5 Seconds (26.0-36.0)
[2019-12-31 10:42] LABS: BUN/Creatinine Ratio 23 (6-26); Blood Urea Nitrogen 28 mg/dL (8-23); Calcium 9.1 mg/dL (8.6-10.3); Carbon Dioxide 23 mEq/L (23-29); Chloride 110 mEq/L (98-107); Glucose 150 mg/dL (70-105); Osmolality,Calculated 294 (280-300); Potassium 4.1 mEq/L (3.5-5.1); Sodium 138 mEq/L (136-145); Troponin I 0.05 ng/mL (< 0.04); eGFR For African Americans > 60 (> 60); eGFR For Non-African Americans 60 (> 60)
[2019-12-31] MEDS ORDERED: Furosemide 40 MG/4 ML VIAL IVP ONE (11:13)
[2019-12-31] MEDS ORDERED: Aspirin 81 MG TAB.CHEW PO ONE (11:14)
[2019-12-31] MEDS ORDERED: Isovue-370 500 ML BOTTLE IVP ONE (11:15)
[2019-12-31] MEDS ORDERED: Naloxone 0.4 MG/ML INJ IVP PRN (12:39)
[2019-12-31] MEDS ORDERED: *HR* OxyCODONE/APAP 5/325 TABLET PO PRN (13:56)
[2019-12-31] MEDS ORDERED: Nitroglycerin 0.4 MG TAB.SUBL SL PRN (13:56)
[2019-12-31] MEDS ORDERED: Dextrose Gel 15 GM/37.5 ML TUBE PO PRN ×2 (15:17)
[2019-12-31] MEDS ORDERED: D5% in Water 1,000 ML IVC PRN (15:17)
[2019-12-31] MEDS ORDERED: *HR* Dextrose 50 % in Water (Syg) 50 ML SYRINGE IVP PRN (15:17)
[2019-12-31] MEDS ORDERED: Warfarin perPT PO PRN (18:00)
[2019-12-31] MEDS: Metoprolol XL (24 HR) Succ 50 MG TAB.ER.24H PO SCH (20:37)
[2019-12-31] MEDS: Insulin DETEMIR 100 UNIT/ML X5UNITS SQ SCH (20:38)
[2019-12-31] MEDS: Budesonide/Formoterol 80/4.5 1 PUFF INH IH SCH (20:43)
[2019-12-31] MEDS ORDERED: NON-FORMULARY MEDICATION 1 EACH EACH (Insulin Glargine,Hum.Rec.Anlog [Basaglar Kwikpen U-1 SQ SCH (21:00)
[2020-01-01 02:08] LABS: Basophils % 0.2 %; Hematocrit 46.2 % (37.5-50.1); Hemoglobin 15.2 g/dL (12.9-16.9); Mean Corpuscular HGB Conc 32.9 g/dL (31.6-35.5); Mean Corpuscular Hemoglobin 32.1 pg (28.0-33.3); Monocytes % 7.3 %
[2020-01-01 02:10] LABS: Eosinophils # 0.1 K/mcL (0.0-0.6); Eosinophils % 0.6 %; Immature Granulocytes % 0.5 % (0-4); Immature Platelets 4.9 % (1.1-6.1); Lymphocytes # 1.1 K/mcL (0.6-4.6); Lymphocytes % 12.4 %; Mean Corpuscular Volume 97.7 fL (83.0-100.0); Mean Platelet Volume 10.5 fL (9.4-12.4); Monocytes # 0.6 K/mcL (0.0-1.3); Neutrophils # 6.7 K/mcL (1.6-8.9); Platelet Count 132 K/mcL (140-400); Red Blood Count 4.73 M/mcL (4.19-5.50); Red Cell Distribution Width 14.4 % (11.5-14.5); White Blood Count 8.5 K/mcL (4.3-11.1)
[2020-01-01 02:13] LABS: INR 2.1; Prothrombin Time 24.4 Seconds (9.4-12.1)
[2020-01-01 02:24] LABS: BUN/Creatinine Ratio 22 (6-26); Blood Urea Nitrogen 29 mg/dL (8-23); Calcium 9.1 mg/dL (8.6-10.3); Carbon Dioxide 23 mEq/L (23-29); Chloride 107 mEq/L (98-107); Glucose 202 mg/dL (70-105); Osmolality,Calculated 298 (280-300); Potassium 3.9 mEq/L (3.5-5.1); Sodium 138 mEq/L (136-145); eGFR For African Americans > 60 (> 60); eGFR For Non-African Americans 54 (> 60)
[2020-01-01] MEDS: Levalbuterol 1 PUFF INHALER IH PRN ×2 (06:32→16:54)
[2020-01-01] MEDS: Budesonide/Formoterol 80/4.5 1 PUFF INH IH SCH ×2 (08:00→20:20)
[2020-01-01] MEDS ORDERED: Furosemide 40 MG/4 ML VIAL IVP SCH (09:00)
[2020-01-01] MEDS ORDERED: NON-FORMULARY MEDICATION 1 EACH EACH (Fluticasone/Vilanterol [Breo Ellipta 100-25 Mcg Inh] IH SCH (09:00)
[2020-01-01] MEDS: Metoprolol XL (24 HR) Succ 50 MG TAB.ER.24H PO SCH ×2 (09:18→20:24)
[2020-01-01] MEDS: lisinopriL 5 MG TABLET PO SCH (09:18)
[2020-01-01] MEDS: Isosorbide MONOnitrate (24 HR) 30 MG TAB.ER.24H PO SCH (09:18)
[2020-01-01] MEDS: Aspirin Enteric Coated 81 MG Tablet PO SCH (09:18)
[2020-01-01] MEDS ORDERED: Isovue-370 500 ML BOTTLE IVP ONE (12:12)
[2020-01-01] MEDS ORDERED: 0.9 % Sodium Chloride 1,000 ML IVC SCH (12:15)
[2020-01-01] MEDS: DilTIAZem CD (24hr) 180 MG CAP.ER.24H PO SCH (13:22)
[2020-01-01] MEDS: Acetaminophen 325 MG TABLET PO PRN (17:57)
[2020-01-01] MEDS ORDERED: *HR* Warfarin 2.5 MG TABLET PO ONE (18:00)
[2020-01-01] MEDS: Insulin DETEMIR 100 UNIT/ML X5UNITS SQ SCH (20:24)
[2020-01-02 03:11] LABS: INR 1.7
[2020-01-02 03:12] LABS: Basophils # 0.1 K/mcL (0.0-0.2); Basophils % 0.5 %; Eosinophils # 0.1 K/mcL (0.0-0.6); Eosinophils % 0.8 %; Hematocrit 49.4 % (37.5-50.1); Hemoglobin 16.5 g/dL (12.9-16.9); Immature Granulocytes % 0.5 % (0-4); Lymphocytes # 1.5 K/mcL (0.6-4.6); Lymphocytes % 14.5 %; Mean Corpuscular HGB Conc 33.4 g/dL (31.6-35.5); Mean Corpuscular Hemoglobin 32.9 pg (28.0-33.3); Mean Corpuscular Volume 98.4 fL (83.0-100.0); Mean Platelet Volume 10.1 fL (9.4-12.4); Monocytes # 0.9 K/mcL (0.0-1.3); Monocytes % 8.9 %; Neutrophils # 7.7 K/mcL (1.6-8.9); Platelet Count 140 K/mcL (140-400); Red Blood Count 5.02 M/mcL (4.19-5.50); Red Cell Distribution Width 14.6 % (11.5-14.5); Segmented Neutrophils % 74.8 %; White Blood Count 10.3 K/mcL (4.3-11.1)
[2020-01-02 03:28] LABS: Calcium 9.3 mg/dL (8.6-10.3); Potassium 3.9 mEq/L (3.5-5.1)
[2020-01-02] MEDS: lisinopriL 5 MG TABLET PO SCH (09:10)
[2020-01-02] MEDS: Metoprolol XL (24 HR) Succ 50 MG TAB.ER.24H PO SCH ×2 (09:11→20:17)
[2020-01-02] MEDS: Aspirin Enteric Coated 81 MG Tablet PO SCH (09:11)
[2020-01-02] MEDS: Isosorbide MONOnitrate (24 HR) 30 MG TAB.ER.24H PO SCH (09:13)
[2020-01-02] MEDS: DilTIAZem CD (24hr) 180 MG CAP.ER.24H PO SCH (09:13)
[2020-01-02] MEDS: Budesonide/Formoterol 80/4.5 1 PUFF INH IH SCH ×2 (10:33→20:01)
[2020-01-02] MEDS: Acetaminophen 325 MG TABLET PO PRN (17:25)
[2020-01-02] MEDS: Insulin LISPRO 300 UNITS/3 ML VIAL SQ SCH (17:27)
[2020-01-02] MEDS ORDERED: *HR* Warfarin 5 MG TABLET PO ONE (18:00)
[2020-01-02] MEDS: Insulin DETEMIR 100 UNIT/ML X5UNITS SQ SCH (20:34)
[2020-01-02] MEDS ORDERED: Insulin LISPRO 300 UNITS/3 ML VIAL SQ SCH (21:00)
[2020-01-03 02:50] LABS: Immature Granulocytes % 0.6 % (0-4)
[2020-01-03 02:52] LABS: Basophils % 0.3 %; Eosinophils # 0.1 K/mcL (0.0-0.6); Eosinophils % 0.7 %; Hematocrit 47.9 % (37.5-50.1); Hemoglobin 15.7 g/dL (12.9-16.9); Immature Platelets 5.2 % (1.1-6.1); Lymphocytes # 1.3 K/mcL (0.6-4.6); Lymphocytes % 13.4 %; Mean Corpuscular HGB Conc 32.8 g/dL (31.6-35.5); Mean Corpuscular Volume 97.8 fL (83.0-100.0); Mean Platelet Volume 10.7 fL (9.4-12.4); Monocytes # 0.8 K/mcL (0.0-1.3); Monocytes % 8.5 %; Neutrophils # 7.5 K/mcL (1.6-8.9); Platelet Count 139 K/mcL (140-400); Red Cell Distribution Width 14.6 % (11.5-14.5); Segmented Neutrophils % 76.5 %; White Blood Count 9.8 K/mcL (4.3-11.1)
[2020-01-03 02:58] LABS: INR 1.4; Prothrombin Time 16.1 Seconds (9.4-12.1)
[2020-01-03 03:09] LABS: BUN/Creatinine Ratio 32 (6-26); Blood Urea Nitrogen 41 mg/dL (8-23); Calcium 9.1 mg/dL (8.6-10.3); Carbon Dioxide 21 mEq/L (23-29); Chloride 110 mEq/L (98-107); Glucose 157 mg/dL (70-105); Osmolality,Calculated 303 (280-300); Potassium 3.9 mEq/L (3.5-5.1); Sodium 140 mEq/L (136-145); eGFR For African Americans > 60 (> 60); eGFR For Non-African Americans 55 (> 60)
[2020-01-03] MEDS ORDERED: Regadenoson 0.4 MG/5 ML SYRINGE IVP ONE (06:19)
[2020-01-03] MEDS: Insulin LISPRO 300 UNITS/3 ML VIAL SQ SCH ×2 (09:38→11:44)
[2020-01-03] MEDS: Isosorbide MONOnitrate (24 HR) 30 MG TAB.ER.24H PO SCH (09:38)
[2020-01-03] MEDS: DilTIAZem CD (24hr) 180 MG CAP.ER.24H PO SCH (09:39)
[2020-01-03] MEDS: Aspirin Enteric Coated 81 MG Tablet PO SCH (09:39)
[2020-01-03] MEDS: Metoprolol XL (24 HR) Succ 50 MG TAB.ER.24H PO SCH (09:39)
[2020-01-03] MEDS: Budesonide/Formoterol 80/4.5 1 PUFF INH IH SCH (09:45)
[2020-01-03 11:32] VITALS: BP 134/89
[2020-01-03] MEDS ORDERED: *HR* Warfarin 2.5 MG TABLET PO ONE (18:00)
== END 2020-01-03 13:35 | disposition home or self-care (01) | DRG 308 ==
LOC: EMEROOARM 09:16 → 2ANU 09:16 → SUATTDRO 14:44 → 2ANU 15:10
PROVIDERS: ADMIT Internal Medicine; ATTEND Internal Medicine